=== PATIENT | male | born 1945 | race Caucasian/White ===

== ENCOUNTER 2017-12-20 01:04 | Emergency (ER) | payer MEDICARE, OTHER ==
[2017-12-20 01:25] VITALS: BP 156/78; PULSE 70; O2SAT 96
[2017-12-20] MEDS ORDERED: BACIGUENT PACKET ONE (01:46)
[2017-12-20] MEDS ORDERED: Rocephin 1000 MG INJ ONE (01:46)
[2017-12-20] MEDS ORDERED: Rocephin 1000 MG INJ IM ONE (01:49)
[2017-12-20] MEDS ORDERED: BACIGUENT PACKET TP ONE (01:54)
--- NOTE | 2017-12-20 01:54 | ERPHSYRPT ---
- History of Present Illness Time Seen by Provider: 12/20/17 01:49 Source: patient Exam Limitations: no limitations Patient Subjective Stated Complaint: tick bite in right side of groin area, tried to remove the tick with a cigarette, tried to pull out with pliers and only got the body out, this occurred a week to 10 days ago Triage Nursing Assessment: Pt A&O x3, pt stated that he was bitten by a tick in the right groin area a week to 10 days ago and he was unable to remove the head , the area is swollen, red, and painful, pt states that he has begun feeling weak and has a headache and just overall not feeling well, bp 156/78, pulses normal, steady gait Physician History: 72 years old male patient came to ER with c/o possible tick bite in right side of groin area, tried to remove the tick with a cigarette, tried to pull out with pliers and only got the body out, this occurred a week to 10 days ago Timing/Duration: day(s) (10 days ) Associated Symptoms: denies symptoms Allergies/Adverse Reactions: No Known Drug Allergies Allergy (Verified 12/20/17 01:26) Home Medications: Aspirin 81 mg PO DAILY 11/30/14 [History] Cyanocobalamin/Folic Acid [Vitamin S60-Ehtif Acid Tablet] 1 tab PO DAILY [History] Amlodipine Besylate 10 mg PO QAM 12/20/17 [History] Gabapentin 400 mg PO BID 12/20/17 [History] Multivit-Min/FA/Lycopen/Lutein [Centrum Silver Men Tablet] 1 each PO DAILY 12/20 [History] Simvastatin 20Mg [Zocor 20Mg] 10 mg PO QPM 12/20/17 [History] Hx Tetanus, Diphtheria Vaccination/Date Given: No Hx Influenza Vaccination/Date Given: Yes Hx Pneumococcal Vaccination/Date Given: Yes - Review of Systems Constitutional: No Fever, No Chills Eyes: No Symptoms Ears, Nose, & Throat: No Symptoms Respiratory: No Cough, No Dyspnea Cardiac: No Chest Pain, No Edema, No Syncope Abdominal/Gastrointestinal: No Abdominal Pain, No Nausea, No Vomiting, No Diarrhea Genitourinary Symptoms: No Dysuria Musculoskeletal: No Back Pain, No Neck Pain Skin: Cellulitis, Induration (right groin), No Rash Neurological: No Dizziness, No Focal Weakness, No Sensory Changes Psychological: No Symptoms Endocrine: No Symptoms All Other Systems: Reviewed and Negative - Past Medical History Pertinent Past Medical History: Yes Cardiac History: High Cholesterol, Hypertension - Past Surgical History Past Surgical History: Yes Musculoskeletal: Orthopedic Surgery Other Surgical History: NASAL SURGERY - Social History Smoking Status: Current every day smoker Exposure to second hand smoke: No Drug Use: none Patient Lives Alone: No - Nursing Vital Signs Nursing Vital Signs: Initial Vital Signs Temperature 98.1 F 12/20/17 01:12 Pulse Rate 70 12/20/17 01:12 Blood Pressure 156/78 12/20/17 01:12 O2 Sat by Pulse Oximetry 96 12/20/17 01:12 Pain Scale Pain Intensity 5 - Physical Exam General Appearance: no apparent distress Eye Exam: PERRL/EOMI Ears, Nose, Throat Exam: normal ENT inspection Neck Exam: normal inspection Respiratory Exam: normal breath sounds Neurologic Exam: alert, oriented x 3 Skin Exam: normal color, other (abscess in right groin) SpO2 Interpretation: normal SpO2: 96 Oxygen Delivery: Room Air - Course Nursing assessment & vital signs reviewed: Yes Ordered Tests: Medication Summary Generic Name Dose Route Start Last Admin Trade Name Freq PRN Reason Stop Dose Admin Ceftriaxone Sodium 1,000 mg 12/20/17 01:49 Rocephin 1000 Mg Inj IM 12/20/17 01:50 STAT ONE Discontinued Medications Generic Name Dose Route Start Last Admin Trade Name Freq PRN Reason Stop Dose Admin Bacitracin Zinc Confirm 12/20/17 01:46 Baciguent Packet Administered 12/20/17 01:47 Dose 1 gm .ROUTE .STK-MED ONE Ceftriaxone Sodium Confirm 12/20/17 01:46 Rocephin 1000 Mg Inj Administered 12/20/17 01:47 Dose 1,000 mg .ROUTE .STK-MED ONE - Progress Progress: unchanged Counseled pt/family regarding: diagnosis, need for follow-up - Departure Time of Disposition: 01:52 Departure Disposition: Home Clinical Impression: Abscess of groin, right Tick bite of right hip with infection Qualifiers: Encounter type: initial encounter Qualified Code(s): S70.261A - Insect bite ( nonvenomous), right hip, initial encounter; L08.9 - Local infection of the skin and subcutaneous tissue, unspecified; L08.9 - Local infection of the skin and subcutaneous tissue, unspecified; W57.XXXA - Bitten or stung by nonvenomous insect and other nonvenomous arthropods, initial encounter; W57.XXXA - Bitten or stung by nonvenomous insect and other nonvenomous arthropods, initial encounter Condition: Stable Critical Care Time: No Referrals: [facility],'[facility] [Primary Care Provider] - Instructions: Wound Infection Prescriptions: Cephalexin Mh 500 mg [Keflex 500 mg] 500 mg PO Q6H #40 capsule
== END 2017-12-20 02:00 | disposition home or self-care (01) ==
LOC: ED 01:04
DX: L02.214 Cutaneous abscess of groin (principal); S70.261A Insect bite (nonvenomous), right hip, initial encounter; W57.XXXA Bitten or stung by nonvenomous insect and other nonvenomous arthropods, initial encounter
CPT/HCPCS: 96372; 99283; J0696; A9270-GY